=== PATIENT | female | born 1970 | race Caucasian/White ===

== ENCOUNTER 2018-05-01 07:51 | Emergency (ER) | payer BC ==
[~2018-05-01] VITALS: Ht 167.6 cm; Wt 77.3 kg
[~2018-05-01 07:51] MED LIST: 00186-0370-20 IH; ALENDRONATE SOD35 M1 PO; BACTRIM DS 8001 TAB PO; BONIVA150 MG PO; CEPHALEXIN500 M1 PO; CORGARD20 MG PO; CORGARD40 MG PO; FLOVENT 110MCG7.9 GM IH; FOSAMAX 35MG35 MG PO; FOSAMAX PO; FOSAMAX35 MG PO; LORTAB 5/500 501 TAB PO; MIRAPEX0.25 MG PO; MULTIPLE VITAMI1 TAB PO; PREMARIN VAG42.5 GM VG; PREVIDENT5000PLUS DT; PROTONIX 40MG T40 MG PO; SINGULAIR 110 MG/TAB PO; SINGULAIR10 MG PO; SPORANOX100 MG PO; VENTOLIN0.09 MG IH; VIVELLE0.025 MG/2 TD; ZITHROMAX 250M250 MG PO; ZITHROMAX Z PA250 MG PO; ZOFRAN 4MG T4 MG/TAB PO
[2018-05-01 08:09] VITALS: TEMP 96.4
[2018-05-01] MEDS ORDERED: AMITRIPTYLINE H50 M1 PO (08:25)
[2018-05-01] MEDS ORDERED: IMITREX100 MG PO (08:25)
[2018-05-01] MEDS ORDERED: PHENERGAN 25 TA25 MG PO (08:26)
[2018-05-01] MEDS ORDERED: ZOFRAN8 MG PO (08:26)
[2018-05-01] MEDS ORDERED: KLONOPIN WAFER0.5 MG PO (08:27)
[2018-05-01] MEDS ORDERED: VIVELLE-DO0.05 MG/24 TD (08:30)
[2018-05-01] MEDS ORDERED: SEROQUEL 1100 MG/TAB PO (08:32)
[2018-05-01 08:36] LABS: HEMATOCRIT 39.2 % (37.0-47.0); HEMOGLOBIN 12.3 g/dl (12.5-16.0); MEAN CELL VOLUME 87 fl (80.0-100.0); MEAN CORPUSCULAR HEMOGLOBIN 27 pg (27.0-31.0); MEAN CORPUSCULAR HGB CONC 31 g/dl (33.0-37.0); MEAN PLATELET VOLUME 8.9 fl (7.4-10.4); PLATELET COUNT 323 K/mm3 (130-400); RED BLOOD COUNT 4.51 M/mm3 (4.10-5.30); REDCELL DISTRIBUTION WIDTH-CV 15.9 % (11.5-14.5)
[2018-05-01 08:40] LABS: PROTHROMBIN TIME 11.2 SECONDS (9.7-12.8)
[2018-05-01 08:48] LABS: ALBUMIN 4.6 gm/dL (3.5-5.0); BILIRUBIN,TOTAL 0.5 mg/dL (0.0-1.0); C-REACTIVE PROTEIN 1.1 mg/dL (0.0-0.9); CALCIUM 9.3 mg/dL (8.4-10.2); CREATININE, serum 0.79 mg/dL (0.52-1.25); POTASSIUM 4.3 mmol/L (3.4-5.0); TOTAL PROTEIN 8.3 gm/dL (6.4-8.2)
[2018-05-01 09:17] LABS: COLLECTION METHOD CLEAN CATCH
[2018-05-01 09:28] LABS: MUCOUS Present /lpf; PH 6 (5-8); SQUAMOUS EPITHELIAL 0-2 /hpf; URINE APPEARANCE Clear; URINE BACTERIA None Seen /hpf; URINE BILIRUBIN Negative (NEGATIVE); URINE BLOOD 2+ (NEGATIVE); URINE COLOR Yellow; URINE GLUCOSE Negative (NEGATIVE); URINE KETONE Trace (NEGATIVE); URINE LEUKOCYTE ESTERASE Negative (NEGATIVE); URINE NITRATE Negative (NEGATIVE); URINE PROTEIN(semi-quant) Negative (NEGATIVE)
[2018-05-01 09:39] LABS: BAND 21 % (0-10); EOSINOPHIL 1 % (0-4); LYMPHOCYTE 5 % (20.0-51.0); NEUTROPHILS 68 % (42.0-75.2); PLATELET ESTIMATE NORMAL (NORMAL)
[2018-05-01 11:15] VITALS: BP 101/63; PULSE 88
== END 2018-05-01 11:17 | disposition home or self-care (01) ==
LOC: COL.ER 07:51
PROVIDERS: Family Medicine
DX: K52.9 Noninfective gastroenteritis and colitis, unspecified (principal); Z86.73 Personal history of transient ischemic attack (TIA), and cerebral infarction without residual deficits
CPT/HCPCS: J2405; J2550; J7030

== ENCOUNTER → 2020-01-23 | Outpatient (CLI) | payer BC ==
[~2020-01-23] MED LIST changes: +AMITRIPTYLINE H50 M1 PO; +IMITREX100 MG PO; +KLONOPIN WAFER0.5 MG PO; +PHENERGAN 25 TA25 MG PO; +SEROQUEL 1100 MG/TAB PO; +VIVELLE-DO0.05 MG/24 TD; +ZOFRAN8 MG PO
== END ==
LOC: COL.RAD 13:22
DX: K57.92 Diverticulitis of intestine, part unspecified, without perforation or abscess without bleeding (principal); Z90.710 Acquired absence of both cervix and uterus
CPT/HCPCS: Q9967

== ENCOUNTER 2020-01-24 08:39 | Emergency (ER) | payer BC ==
[~2020-01-24] VITALS: Ht 165.1 cm; Wt 68.2 kg
[2020-01-24 08:43] VITALS: TEMP 97.4
[2020-01-24 09:15] LABS: COLLECTION METHOD CLEAN CATCH
[2020-01-24 09:21] LABS: MUCOUS Present /lpf; PH 7 (5-8); SQUAMOUS EPITHELIAL 0-2 /hpf; URINE APPEARANCE Clear; URINE BACTERIA None Seen /hpf; URINE BILIRUBIN Negative (NEGATIVE); URINE BLOOD 1+ (NEGATIVE); URINE COLOR Straw; URINE GLUCOSE Negative (NEGATIVE); URINE KETONE Negative (NEGATIVE); URINE LEUKOCYTE ESTERASE Negative (NEGATIVE); URINE NITRATE Negative (NEGATIVE); URINE PROTEIN(semi-quant) Negative (NEGATIVE); URINE RBC 0-2 /hpf; URINE UROBILINOGEN Negative (NEGATIVE)
[2020-01-24 10:05] LABS: BASO % 0.5 % (0.0-2.0); EOS % 0.9 % (0-4.0); GRAN % 68.7 % (42.2-75.2); HEMOGLOBIN 11.1 g/dl (12.5-16.0); LYMPH # 0.9 (1.2-3.4); MEAN CELL VOLUME 87 fl (80.0-100.0); MEAN CORPUSCULAR HEMOGLOBIN 28 pg (27.0-31.0); MEAN CORPUSCULAR HGB CONC 32 g/dl (33.0-37.0); MEAN PLATELET VOLUME 9.1 fl (7.4-10.4); MONO # 0.4 (0.1-0.6); MONO % 9.7 % (1.7-9.3); PLATELET COUNT 285 K/mm3 (130-400); RED BLOOD COUNT 4.04 M/mm3 (4.10-5.30); REDCELL DISTRIBUTION WIDTH-CV 16.1 % (11.5-14.5)
[2020-01-24 10:18] LABS: ALBUMIN 4.2 gm/dL (3.5-5.0); BILIRUBIN,TOTAL 0.5 mg/dL (0.0-1.0); C-REACTIVE PROTEIN 0.6 mg/dL (0.0-0.9); CALCIUM 9.1 mg/dL (8.4-10.2); CREATININE, serum 0.71 (0.52-1.25); POTASSIUM 3.7 mmol/L (3.4-5.0); TOTAL PROTEIN 7.4 gm/dL (6.4-8.2)
[2020-01-24 11:13] VITALS: BP 117/79; PULSE 65
== END 2020-01-24 11:13 | disposition home or self-care (01) ==
LOC: COL.ER 08:39
PROVIDERS: Physician Assistant
DX: K57.92 Diverticulitis of intestine, part unspecified, without perforation or abscess without bleeding (principal); J44.0 Chronic obstructive pulmonary disease with (acute) lower respiratory infection; J45.909 Unspecified asthma, uncomplicated; G43.909 Migraine, unspecified, not intractable, without status migrainosus; Z88.8 Allergy status to other drugs, medicaments and biological substances; Z79.51 Long term (current) use of inhaled steroids
CPT/HCPCS: J0780; J7030

== ENCOUNTER 2020-02-20 05:52 | Day surgery (SDC) | payer BC ==
[~2020-02-20] VITALS: Ht 166.4 cm; Wt 66.5 kg
[2020-02-20 06:21] VITALS: BP 121/76; PULSE 78; TEMP 98.5
[2020-02-20] MEDS ORDERED: EMGALITY120 MG/1 M SQ (06:31)
[2020-02-20] MEDS ORDERED: SPIRIVA RE2.5 MCG/Ac IH (06:33)
[2020-02-20] MEDS ORDERED: VENTOLIN0.09 MG IH (06:34)
[2020-02-20 07:40] VITALS: BP 102/53; PULSE 78
--- NOTE | 2020-02-20 07:40 | NUR ---
Patient brought back to [facility] bay 1 via cart. Ambulated to chair without difficulty. Placed on monitors, vital signs stable. Denies pain or nasuea. Emily at bedside for report all questions answered. Sister in waiting room to bring patient home. Patient requests water, and muffin. Tolerating without difficulty. Warm blanket provided, call walter within reach. Will continue to monitor.
[2020-02-20 07:45] VITALS: BP 102/73; PULSE 71
--- NOTE | 2020-02-20 07:45 | NUR ---
Patient states she would like more water at this time. Sister brought back to room. Denies pain. Tolerating snacks without difficulty. Will monitor.
[2020-02-20 08:00] VITALS: BP 102/68; PULSE 75
--- NOTE | 2020-02-20 08:00 | NUR ---
MD at bedside to explain results.
--- NOTE | 2020-02-20 08:15 | NUR ---
Patient states she is ready to go home. IV removed from right hand, intact. Patient to get dressed at this time.
--- NOTE | 2020-02-20 08:30 | NUR ---
Discharge instructions reviewed with patient. Verbalized understanding. Patient brought down to lobby via wheel chair. All belongings in hand. Sister at front door to drive patient home.
== END 2020-02-20 08:30 | disposition home or self-care (01) ==
LOC: SDCO 05:52
DX: Z12.11 Encounter for screening for malignant neoplasm of colon (principal); K57.32 Diverticulitis of large intestine without perforation or abscess without bleeding; R93.3 Abnormal findings on diagnostic imaging of other parts of digestive tract; Z88.8 Allergy status to other drugs, medicaments and biological substances; J44.9 Chronic obstructive pulmonary disease, unspecified; G47.33 Obstructive sleep apnea (adult) (pediatric); F32.9 Major depressive disorder, single episode, unspecified; F41.9 Anxiety disorder, unspecified; K21.9 Gastro-esophageal reflux disease without esophagitis; Z91.030 Bee allergy status; Z91.018 Allergy to other foods; G43.909 Migraine, unspecified, not intractable, without status migrainosus
CPT/HCPCS: J2704; J3010; J7030

== ENCOUNTER 2020-10-01 07:14 | Day surgery (SDC) | payer BC ==
[~2020-10-01] VITALS: Ht 167.6 cm; Wt 60.0 kg
[~2020-10-01 07:14] MED LIST changes: +EMGALITY120 MG/1 M SQ; +SPIRIVA RE2.5 MCG/Ac IH
[2020-10-01] MEDS ORDERED: PHENERGAN 25 TA25 MG PO (07:59)
[2020-10-01] MEDS ORDERED: NURTEC ODT75 MG PO (08:00)
[2020-10-01] MEDS ORDERED: COLACE 100100 MG/CAP PO (08:01)
[2020-10-01] MEDS ORDERED: SEROQUEL 200MG200 MG PO (08:01)
[2020-10-01] MEDS ORDERED: GENTLE LAXATIVE10 MG RC (08:01)
[2020-10-01 08:02] VITALS: BP 107/87; PULSE 91; TEMP 98.5
[2020-10-01 09:10] VITALS: BP 99/64; PULSE 83; TEMP 97.8
[2020-10-01 09:15] VITALS: BP 98/57; PULSE 80
[2020-10-01 09:30] VITALS: BP 105/68; PULSE 84
[2020-10-01 09:45] VITALS: BP 111/64; PULSE 83
--- NOTE | 2020-10-01 10:10 | NUR ---
PT RETRUNED FROM THE ENDO PROCEDURE ROOM INTO BAY#1. PT ALERT AND SLEEPY. DENIES NAUSEA, VOMITING OR PAIN. LUNGS CLEAR, HRR, BOWEL SOUNDS PRESENT. PT REQUESTS BLUE MORRIS MUFFIN AND ORANGE JUICE AND WATER. IVF PATENT INTO LEFT HAND. WILL CONT TO MONITOR PROGRESS.
--- NOTE | 2020-10-01 10:16 | NUR ---
PT TOLERATING FOOD AND FLUIDS WITHOUT DIFFICULTY. SISTER, SRIKANTH WAS BROUGHT IN TO PT ROOM PER PT REQUEST. WILL CONT TO MONITOR PROGRESS.
--- NOTE | 2020-10-01 10:18 | NUR ---
PT TOLERATING FOOD AND FLUIDS, DENIES PAIN, NAUSEA AND VOMITING. VISITING WITH SISTER, SRIKANTH. IV DC'D TO LEFT HAND, TOLERATED WELL. WILL CONT TO MONITOR.
--- NOTE | 2020-10-01 10:21 | NUR ---
DISMISSAL INSTRUCTIONS WERE PROVIDED AND SIGNED. CONTINUES TO DENY PAIN, NAUSEA OR VOMITING. PT WAS TAKEN TO THE FAMILY VEHICLE PER WC, SISTER, SRIKANTH WAS DRIVING.
== END 2020-10-01 09:55 | disposition designated cancer center or children's hospital (05) ==
LOC: SDCO 07:14
DX: Z12.11 Encounter for screening for malignant neoplasm of colon (principal); K57.30 Diverticulosis of large intestine without perforation or abscess without bleeding; K64.0 First degree hemorrhoids; D64.9 Anemia, unspecified; J44.9 Chronic obstructive pulmonary disease, unspecified; G47.33 Obstructive sleep apnea (adult) (pediatric); K21.9 Gastro-esophageal reflux disease without esophagitis; M41.9 Scoliosis, unspecified; G25.81 Restless legs syndrome; G43.909 Migraine, unspecified, not intractable, without status migrainosus; F32.9 Major depressive disorder, single episode, unspecified; F41.9 Anxiety disorder, unspecified; Z79.899 Other long term (current) drug therapy; Z99.89 Dependence on other enabling machines and devices
CPT/HCPCS: J2704; J7120

== ENCOUNTER → 2020-11-12 | Outpatient (CLI) | payer BC ==
[~2020-11-12] MED LIST changes: +COLACE 100100 MG/CAP PO; +GENTLE LAXATIVE10 MG RC; +NURTEC ODT75 MG PO; +SEROQUEL 200MG200 MG PO
== END ==
LOC: COL.RAD 09:55
DX: R25.1 Tremor, unspecified (principal)
CPT/HCPCS: A9585